=== PATIENT | male | born 1955 | race Caucasian/White ===

== ENCOUNTER 2019-09-03 16:17 | Emergency (ER) | payer OTHER ==
[2019-09-03] MEDS ORDERED: LACTATED RINGERS SOLUTION 1000 ML INFUS.BAG IV ONE (16:43)
[2019-09-03 16:44] VITALS: TEMP 97.1; BMI 29.0
[2019-09-03] MEDS ORDERED: ACETAMINOPHEN 325 MG TABLET (FP) PO ONE (16:55)
[2019-09-03] MEDS ORDERED: ACETAMINOPHEN 325 MG TABLET (FP) ONE (16:57)
--- NOTE | 2019-09-03 17:01 | PDOC ---
History of Present Illness - General Chief Complaint: Psychiatric Stated Complaint: Syncope/Near Syncope Time Seen by Provider: 09/03/19 16:40 History Source: Patient Exam Limitations: No Limitations - History of Present Illness Initial Comments: HPI: 64 y/o male presenting to [facility] ER complaining of worsening bifrontal headache, right sided neck pain, and left shoulder pain s/p syncopal episode. Pt states he was in an emotionally charged conversation with his landlord. He suddenly developed lightheadedness, dry mouth, and rapid breathing. Believes he passed out into a bystanders arms and was helped onto a couch. Denies striking head or neck. Believes he was unresponsive for approx. 4 to 5 minutes. Developed progressively worsening headache after returning to consciousness. Denies tongue biting, urinary incontinence, and/or fecal incontinence. Reports a h/o presyncopal episodes with previously emotionally charged conversations. No recent illness. Social Hx: - Daily tobacco smoker Family Hx: - Denies h/o HI under age 65 in first degree relative Medical Hx: - Believes he has some sort of lung problem, possibly asthma - does not take any inhaled medications - GERD Past History - Medical History Allergies/Adverse Reactions: Allergies Allergy/AdvReac Type Severity Reaction Status Date / Time cephalexin [From Keflex] Allergy Verified 09/03/19 16:40 COPD: No GI Disorders: Yes (gerd) - Psycho-Social/Smoking History Smoking History: Current every day smoker Number of Cigarettes Smoked Daily: 20 Information on smoking cessation initiated: No Review of Systems - Review of Systems Able to Perform ROS?: Yes Comments:: 10 point review of systems completed. All systems negative except as noted above. *Physical Exam - Vital Signs Last Vital Signs Temp Pulse Resp BP Pulse Ox 97.1 F L 105 H 16 127/80 100 09/03/19 16:31 09/03/19 16:31 09/03/19 16:31 09/03/19 16:31 09/03/19 16:31 - Physical Exam Vital signs and nursing notes reviewed. Constitutional- Well-developed, well-nourished adult male in no acute distress or obvious discomfort. Found semi-fowlers on hospital bed. Answered all questions appropriately and completely. Head- Normocephalic. No obvious external signs of trauma. No tenderness to palpation. Eyes- Pupils 4mm and equal bilaterally. Sclerae white. Conjunctiva moist and not injected. Ears- Hearing grossly intact. Nose- No nasal discharge. Neck- Supple, trachea is midline. No midline c-spine tenderness. Pt reports mild diffuse discomfort to right side of neck when laterally rotating to the left. Cardiovascular / Chest- Regular rate and regular rhythm. No murmur, rubs, clicks, or gallops. Peripheral pulses- radial pulses full. No anterior chest wall tenderness to palpation. Respiratory- Breathing unlabored. Speaking in multi-word responses without pausing. Equal chest rise and fall. Clear to auscultation bilaterally. No stridor, no wheezing, no rhonchi. Gastrointestinal- abdomen is soft, non-tender, non-distended. Neuro- Alert and oriented x4. Moving all four extremities spontaneously. No facial asymmetry. No slurred speech. MSK- No midline thoracic or lumbar spinal tenderness. Skin- Mildly diaphoretic, but warm and intact. Psych- Affect- appropriate. Mood- normal. Speech was non-labored, non- pressured. ED Treatment Course - LABORATORY CBC & Chemistry Diagram: 09/03/19 17:00 09/03/19 17:00 - RADIOLOGY Radiology Studies Ordered: Category Date Time Status CHEST PA & LAT [RAD] Stat Radiology 09/03/19 16:43 Ordered Medical Decision Making - Medical Decision Making 64 y/o male presenting s/p syncopal episode with prodromal symptoms and emotionally charged event. Afebrile. Triage vitals unremarkable for hypotension or tachycardia. Normoxic on room air. Physical exam as described above. Well appearing. Nontoxic. Suspect likely vasovagal episode. Low suspicion for ACS, arrhythmia, electrolyte derangement, thyroid derangement, ICH, or other occult trauma. EKG unremarkable for ischemic findings. No arrhythmia noted on 5 hours of continuous telemetry monitoring. Reviewed laboratory data. No clinically significant derangement noted. Reviewed radiology reports. No acute pathology noted on CXR. Pt reassessed and reports headache has not improved after receiving LR IVFB, Acetaminophen, and Reglan. Reports the pain is not similar to his previous migraines. Ordered HCT to evaluate for subdural. HCT unremarkable for acute intracranial pathology. Study performed within 6 hours of onset. No indication for LP. Pt again reassessed and reports the headache has started to improve somewhat. Ordered Toradol and Bupivacaine for bilateral SPG block. Pt again reassessed. Observed ambulating unassisted without difficulty. States headache is continuing to improve. Pt now reports that he was evicted today and has no place to go. Provided with a list of homeless shelters in . Pt declined to leave tonight. Requested to wait for social work assistance in the morning. 03 Sep 2019 23:55 PM Pt signed out to resident Dr. Hager after he was verbally appraised of the pts HPI, current ED course, and plan of management. Will f/u social work consult in the morning. Case discussed with ED Attending Dr. Ramírez Sullivan M.D., PGY2 Emergency Medicine Resident Discharge - Discharge Information Problems reviewed: Yes Clinical Impression/Diagnosis: Syncope Qualifiers: Syncope type: unspecified Qualified Code(s): R55 - Syncope and collapse Headache Qualifiers: Headache type: unspecified Headache chronicity pattern: acute headache Intractability: not intractable Qualified Code(s): R51 - Headache Condition: Stable - Follow up/Referral Referrals: Celso Liu MD [Primary Care Provider] - - Patient Discharge Instructions Patient Printed Discharge Instructions: DI for Syncope in Adults (Fainting) Additional Instructions: You were seen for a headache after passing out during an argument. Your Head CT, Chest Xray, EKG, and blood work did not show any life threatening emergency condition. You likely passed out because of the argument. You can take over the counter Tylenol or Advil as needed for pain. Take as directed on the package insert. Do not exceed the recommended dosage. Follow up with your primary care doctor in the next 3-4 days. You will need to call to make an appointment. The number is included in this packet. A copy of todays results are attached to this packet. Take it to the appointment so your doctor can review them. Go to the nearest emergency department if your condition worsens or you feel like you need additional emergency evaluation. Print Language: QATARI - Post Discharge Activity
[2019-09-03 17:34] LABS: BASO % 0.8 % (0-2.0); EOS % 2.8 % (0-4.5); HEMATOCRIT 46.4 % (35.4-49); HEMOGLOBIN 15.4 GM/dL (11.7-16.9); LYMPH % 23.9 % (8-40); MCH 26.4 pg (25.7-33.7); MCHC 33.2 g/dl (32.0-35.9); MEAN CELL VOLUME 79.6 fl (80-96); MEAN PLT VOLUME 8.2 fl (7.5-11.1); MONO % 6.5 % (3.8-10.2); PLATELET COUNT 243 K/MM3 (134-434); RBC 5.82 M/mm3 (4.00-5.60); RDW 14.8 % (11.9-15.9); WHITE BLOOD COUNT 8.6 K/mm3 (4.0-10.0)
[2019-09-03 18:05] LABS: ALBUMIN 3.8 g/dl (3.4-5.0); ALK PHOS 68 U/L (45-117); ANION GAP 5 MMOL/L (8-16); BLOOD UREA NITROGEN 14.8 mg/dL (7-18); CALCIUM 8.4 mg/dL (8.5-10.1); CHLORIDE 108 mmol/L (98-107); CO2 25 mmol/L (21-32); CREATININE 1.1 mg/dL (0.55-1.3); GLUCOSE,RANDOM 79 mg/dL (74-106); MAGNESIUM 2.4 mg/dL (1.8-2.4); POTASSIUM 4.3 mmol/L (3.5-5.1); SGOT/AST 21 U/L (15-37); SGPT/ALT 14 U/L (13-61); SODIUM 139 mmol/L (136-145)
[2019-09-03] MEDS ORDERED: METOCLOPRAMIDE HCL INJECTION 10 MG/2 ML VIAL IVPUSH ONE (18:19)
--- NOTE | 2019-09-03 18:21 | PDOC ---
Documentation entered by Taylor Simmons SCRIBE, acting as scribe for Abby Elmore MD. Abby Elmore MD: This documentation has been prepared by the Troy aguiar Adrianna, SCRIBE, under my direction and personally reviewed by me in its entirety. I confirm that the documentation accurately reflects all work, treatment, procedures, and medical decision making performed by me. Attending Attestation - Resident Resident Name: Austin Sullivan - ED Attending Attestation I have performed the following: I have examined & evaluated the patient, The case was reviewed & discussed with the resident, I agree w/resident's findings & plan, Exceptions are as noted - HPI HPI: The patient is a 64 year old male, with a significant PMH of GERD, who presents to the ED for evaluation of s/p syncopal episode. Patient notes he was having an emotional conversation, when he began experiencing sudden onset lightheadedness, and tachypnea. Subsequently, he syncopized into what he believes was someone elses arms for ~4-5 minutes. He denies hitting his head. After the episode, patient developed bilateral frontal headache, right sided neck pain and left shoulder pain. He admits to similar episodes in the past when he has emotional conversations. Allergies: cephalexin Surgical History: None reported Social History: Current everyday smoker (1ppd) PCP: Dr. Liu - Physicial Exam PE: 09/03/19 18:18 General: well appearing HEENT: NCAT Chest: CTAB, good air entry, no wheezes rales or rhonchi CVS: + s1 s2, RRR Abdomen: soft, nt nd, no rebound, no guarding Neuro: awake, alert, responds appropriately to questions, speech fluent, face symmetric, no focal deficits - Medical Decision Making 09/03/19 18:19 64 yo M with syncopal episode in the setting of emotional stress, denies CP or SOB at present time and only reports mild frontal headache, no head trauma, doubt ACS and EKG without ischemic changes, more likely vasovagal. Headache li raegan tension, no signs concerning for ICH. Plan: -labs -cxr -pain control -reassess, if labs and imaging unremarkable anticipate d/c home with return precautions, recommend PMD f/u This clinical encounter is taking place during a federal and state health care emergency attributable to the novel Mahmood Virus pandemic. The [employer] of the Department of Health and Human Services has declared, pursuant to the Public Health Service Act 319F-3 (42 U.S.C. 247d-6d), that a covered persons activities related to medical countermeasures against COVID-19 will be immune from liability under Federal and State law. Discharge - Discharge Information Problems reviewed: Yes Clinical Impression/Diagnosis: Syncope Qualifiers: Syncope type: unspecified Qualified Code(s): R55 - Syncope and collapse Headache Qualifiers: Headache type: unspecified Headache chronicity pattern: acute headache Intractability: not intractable Qualified Code(s): R51 - Headache Condition: Stable Disposition: ELOPED - Follow up/Referral Referrals: Celso Liu MD [Primary Care Provider] - - Patient Discharge Instructions Patient Printed Discharge Instructions: DI for Syncope in Adults (Fainting) Additional Instructions: You were seen for a headache after passing out during an argument. Your Head CT, Chest Xray, EKG, and blood work did not show any life threatening emergency condition. You likely passed out because of the argument. You can take over the counter Tylenol or Advil as needed for pain. Take as directed on the package insert. Do not exceed the recommended dosage. Follow up with your primary care doctor in the next 3-4 days. You will need to call to make an appointment. The number is included in this packet. A copy of todays results are attached to this packet. Take it to the appointment so your doctor can review them. Go to the nearest emergency department if your condition worsens or you feel like you need additional emergency evaluation. Print Language: HUNGARIAN - Post Discharge Activity
[2019-09-03] MEDS ORDERED: METOCLOPRAMIDE HCL INJECTION 10 MG/2 ML VIAL ONE (18:29)
[2019-09-03 18:41] VITALS: BP 134/75; PULSE 91
[2019-09-03] MEDS ORDERED: KETOROLAC TROMETHAMINE 30 MG/1 ML VIAL IVPUSH ONE (21:09)
[2019-09-03] MEDS ORDERED: BUPIVACAINE HCL/PF 0.5% (5 MG/ML) 30 ML VIAL IJ ONE ×2 (21:09→21:11)
[2019-09-03] MEDS ORDERED: KETOROLAC TROMETHAMINE 30 MG/1 ML VIAL ONE (21:11)
--- NOTE | 2019-09-04 02:45 | PDOC ---
*Physical Exam - Vital Signs Last Vital Signs Temp Pulse Resp BP Pulse Ox 97.1 F L 91 H 16 134/75 97 09/03/19 16:31 09/03/19 18:41 09/03/19 18:41 09/03/19 18:41 09/03/19 18:41 ED Treatment Course - LABORATORY CBC & Chemistry Diagram: 09/03/19 17:00 09/03/19 17:00 - ADDITIONAL ORDERS Additional order review: Laboratory Results 09/03/19 17:00 Sodium 139 Potassium 4.3 Chloride 108 H Carbon Dioxide 25 Anion Gap 5 L BUN 14.8 Creatinine 1.1 Est GFR (CKD-EPI)AfAm 80.65 Est GFR (CKD-EPI)NonAf 69.58 Random Glucose 79 Calcium 8.4 L Magnesium 2.4 Total Bilirubin 1.0 AST 21 ALT 14 Alkaline Phosphatase 68 Creatine Kinase 115 Troponin I < 0.02 Total Protein 7.0 Albumin 3.8 TSH 1.54 09/03/19 17:00 RBC 5.82 H MCV 79.6 L MCHC 33.2 RDW 14.8 MPV 8.2 Neutrophils % 66.0 Lymphocytes % 23.9 Monocytes % 6.5 Eosinophils % 2.8 Basophils % 0.8 - Medications Given in the ED: ED Medications Discontinued Medications Generic Name Dose Route Start Last Admin Trade Name Marc PRN Reason Stop Dose Admin Acetaminophen 650 mg 09/03/19 16:55 09/03/19 17:00 Tylenol - PO 09/03/19 16:56 650 mg ONCE ONE Administration Bupivacaine HCl 5 mg 09/03/19 21:09 09/03/19 21:16 Bupivacaine 0.5% Vial IJ 09/03/19 21:10 5 mg NOW ONE Administration Ketorolac Tromethamine 30 mg 09/03/19 21:09 09/03/19 21:16 Toradol Injection - IVPUSH 09/03/19 21:10 30 mg ONCE ONE Administration Lactated Ringer's 1,000 ml 09/03/19 16:43 09/03/19 17:00 Lactated Ringers Solution IV 09/03/19 16:44 1,000 ml ONCE ONE Administration Metoclopramide HCl 10 mg 09/03/19 18:19 09/03/19 18:30 Reglan Injection - IVPUSH 09/03/19 18:20 10 mg ONCE ONE Administration Medical Decision Making - Medical Decision Making 09/04/19 02:45 Signed out from day team 64 y/o male presenting s/p syncopal episode with prodromal symptoms and emotionally charged event. Pt not present on re-eval. Eloped Discharge - Discharge Information Problems reviewed: Yes Clinical Impression/Diagnosis: Syncope Qualifiers: Syncope type: unspecified Qualified Code(s): R55 - Syncope and collapse Headache Qualifiers: Headache type: unspecified Headache chronicity pattern: acute headache Intractability: not intractable Qualified Code(s): R51 - Headache Condition: Stable Disposition: ELOPED - Follow up/Referral Referrals: Celso Liu MD [Primary Care Provider] - - Patient Discharge Instructions Patient Printed Discharge Instructions: DI for Syncope in Adults (Fainting) Additional Instructions: You were seen for a headache after passing out during an argument. Your Head CT, Chest Xray, EKG, and blood work did not show any life threatening emergency condition. You likely passed out because of the argument. You can take over the counter Tylenol or Advil as needed for pain. Take as directed on the package insert. Do not exceed the recommended dosage. Follow up with your primary care doctor in the next 3-4 days. You will need to call to make an appointment. The number is included in this packet. A copy of todays results are attached to this packet. Take it to the appointment so your doctor can review them. Go to the nearest emergency department if your condition worsens or you feel like you need additional emergency evaluation. Print Language: PASHTO - Post Discharge Activity
--- NOTE | 2019-09-04 14:55 | EKG ---
Test Reason : Blood Pressure : / mmHG Vent. Rate : 100 BPM Atrial Rate : 100 BPM P-R Int : 128 ms QRS Dur : 096 ms QT Int : 340 ms P-R-T Axes : 078 062 059 degrees QTc Int : 438 ms NORMAL SINUS RHYTHM POSSIBLE LEFT ATRIAL ENLARGEMENT NONSPECIFIC ST ABNORMALITY ABNORMAL ECG NO PREVIOUS ECGS AVAILABLE Confirmed by VALENCIA MORIN MD ([id number]) on 09/04/2019 2:55:10 PM Referred By: Confirmed By:VALENCIA MORIN MD
== END 2019-09-04 03:01 | disposition left against medical advice (07) ==
LOC: JER 16:17
PROC: 3E033GC Introduction of Other Therapeutic Substance into Peripheral Vein, Percutaneous Approach (ICD-10-PCS; principal; 2019-09-03)
DX: R55 Syncope and collapse (principal); R51 Headache
CPT/HCPCS: 36415; 70450-TC; 71046-TC-FY; 80053; 82550; 83735; 84443; 84484; 85025; 93005; 93010; 99285-25